=== PATIENT | male | born 1985 | race Caucasian/White ===

== ENCOUNTER 2021-01-30 06:49 | Emergency (ER) | payer BC, MEDICAID ==
[~2021-01-30] VITALS: Ht 170.2 cm; Wt 82.0 kg
[~2021-01-30 06:49] MED LIST: BACTRIM DS1 TAB PO; DOXYCYCL HYC100 MG PO; LORTAB 10 PO; NO; TYLENOL COLD OR
[2021-01-30] MEDS ORDERED: KEFLEX500 MG PO (07:27)
[2021-01-30 07:32] VITALS: BP 122/68
== END 2021-01-30 07:37 | disposition home or self-care (01) | DRG 159 ==
LOC: ED 06:49
DX: K04.7 Periapical abscess without sinus (principal); K02.9 Dental caries, unspecified; S00.83XA Contusion of other part of head, initial encounter; X58.XXXA Exposure to other specified factors, initial encounter; F17.210 Nicotine dependence, cigarettes, uncomplicated